=== PATIENT | female | born 1935 | race Caucasian/White ===

== ENCOUNTER 2018-11-05 08:59 | Outpatient (CLI) | payer MEDICARE, BC ==
[~2018-11-05] VITALS: Ht 162.6 cm; Wt 78.5 kg
[2018-11-05 09:30] LABS: ABG BASE EXCESS 4.1 mmol/L (-2.0-3.0); ABG HCO3 28.9 mmol/L (22.0-26.0); ABG PCO2 (T) 43.8 mmHg (32.0-45.0); ABG PH (T) 7.437 (7.350-7.450); ABG PO2 (T) 74.9 mmHg (83-108); ALLEN'S TEST Positive; FCOHb 0.1 % (0.5-1.5); FMetHb 0.1 % (0.3-1.12); FO2Hb 94.8 % (94-100); TOTAL HEMOGLOBIN 12.9 G/dl (12.0-16.0)
[2018-11-05] MEDS ORDERED: albuterol 2.5 MG/3 ML nebule ONE (10:03)
[2018-11-05] MEDS ORDERED: albuterol 2.5 MG/3 ML nebule NEB ONE (10:15)
== END 2018-11-05 23:59 | disposition home or self-care (01) ==
LOC: RT 08:59
PROVIDERS: ATTEND Internal Medicine Pulmonary Disease
DX: J45.998 Other asthma (principal); J98.4 Other disorders of lung; Z79.01 Long term (current) use of anticoagulants; Z79.899 Other long term (current) drug therapy
CPT/HCPCS: 36600; 82803; 85018; 94060; 94727; 94729; 94760